=== PATIENT | female | born 1955 | race Hispanic/Latino ===

== ENCOUNTER 2025-10-01 07:38 | Day surgery (SDC) | payer OTHER ==
[~2025-10-01] VITALS: Ht 157.5 cm; Wt 65.8 kg
[2025-10-01] VITALS (14 sets, daily range): BP systolic 143–166; BP diastolic 72–89; PULSE 65–80; RESP 15–18; TEMP 97.2–97.9
[2025-10-01] MEDS ORDERED: IOHEXOL-350 50ML VIAL IV ONE (08:15)
[2025-10-01] MEDS ORDERED: ATOR10 PO (08:55)
[2025-10-01] MEDS ORDERED: OLME20TA68 PO (08:55)
[2025-10-01] MEDS ORDERED: DICY20TA3 PO (08:55)
[2025-10-01] MEDS ORDERED: CETI10TA87 PO (08:55)
[2025-10-01] MEDS ORDERED: METO-391 PO (08:55)
[2025-10-01] MEDS: 0.9%NACL 1000ML 1,000 ML IV ONE (09:04)
[2025-10-01] MEDS ORDERED: MIDAZOLAM HCL 1 MG/ML 2ML VIAL ONE (09:44)
[2025-10-01] MEDS ORDERED: GLYCOPYRROLATE 0.2 MG/ML 5 ML VIAL ONE (09:44)
[2025-10-01] MEDS ORDERED: SUCCINYLCHOLINE CHLORIDE 20 MG/ML 10 ML VIAL ONE (09:45)
[2025-10-01] MEDS ORDERED: LIDOCAINE HCL 400MG/20ML VIAL ONE (09:45)
[2025-10-01] MEDS: INDOMETHACIN 100 MG SUPP.RECT RC ONE (10:20)
[2025-10-01] MEDS ORDERED: GLUCAGON 1MG KIT 1 MG ML ONE (10:30)
== END 2025-10-01 12:15 | disposition home or self-care (01) ==
LOC: DAH 07:38 → ENDO 07:38
PROVIDERS: ATTEND Internal Medicine Gastroenterology
DX: R93.2 Abnormal findings on diagnostic imaging of liver and biliary tract (principal); K80.30 Calculus of bile duct with cholangitis, unspecified, without obstruction; I10 Essential (primary) hypertension; E78.5 Hyperlipidemia, unspecified; K29.40 Chronic atrophic gastritis without bleeding; K21.00 Gastro-esophageal reflux disease with esophagitis, without bleeding; Z98.891 History of uterine scar from previous surgery; Z79.899 Other long term (current) drug therapy; Z98.890 Other specified postprocedural states
CPT/HCPCS: 43274; 74329; J3010; J3490 ×2; J0330; J7030 ×2; J1610; J2250; J2704; J2405; J2371; C1769 ×2; A4215 ×2; A4223; A4657; A7002; A4222; A4221; A4663; C1875; A4606; 74330; 76000; Q9967